=== PATIENT | female | born 1955 | race Asian ===

== ENCOUNTER 2016-07-09 20:45 | Emergency (ER) | payer MEDICARE ==
[2016-07-09 21:51] LABS: Basophils % (Auto) 0.9 % (0.0-1.8); Hemoglobin 13.3 gm/dl (10.1-14.3); Mean Corpuscular HGB Conc 34 % (30-34); Mean Corpuscular Hemoglobin 31 pg (28-32); Mean Corpuscular Volume 90 fl (79-97); Platelet Count 208 K/mm3 (140-440); Red Blood Count 4.34 M/mm3 (3.65-5.03); Red Cell Distribution Width 13.1 % (13.2-15.2); White Blood Count 6.2 K/mm3 (4.5-11.0)
[2016-07-09 22:17] LABS: Anion Gap 20 mmol/L; BUN/Creatinine Ratio 8.88; Blood Urea Nitrogen 8 mg/dL (7-17); Calcium 9.8 mg/dL (8.4-10.2); Carbon Dioxide 27 mmol/L (22-30); Chloride 94.5 mmol/L (98-107); Glucose 118 mg/dL (65-100); Potassium 3.1 mmol/L (3.6-5.0); Sodium 138 mmol/L (137-145)
[2016-07-10] MEDS ORDERED: XANAX PO ONE ×2 (04:57→16:04)
[2016-07-10] MEDS ORDERED: K-DUR PO ONE (05:00)
--- NOTE | 2016-07-10 05:01 | Emergency Department Report ---
ED Psych HPI - General Chief Complaint: Anxiety Stated Complaint: WEAKNESS/SHAKING/NAUSEA Time Seen by Provider: 07/10/16 04:56 Source: patient Mode of arrival: Ambulatory - History of Present Illness Initial Comments: 61-year-old female with history of anxiety, depression, constipation, hypothyroidism presenting today because of anxiety. Patient states that she has been on Xanax 2 mg during the day and 4 mg at night before bed for the last several decades has ran out of her medication. Patient states that she supposed to see her primary doctor but he is out of the office for an emergency. She states that she recently moved and is unable to find her medication bottle. She denies any suicidal ideation but states that she is very depressed she recently moved in with some females that she found on chronic salicylate is been feeling isolated. She has difficulty sleeping and severe anxiety. She denies any suicidal ideation or homicidal ideation. She also states that she found a small spot on her left foot on the lateral aspect which she wanted examined. Is not painful and does not itch. States that she noticed that in the last couple days. - Related Data Home Medications Medication Instructions Recorded Confirmed Last Taken Levothyroxine [Synthroid] 88 mcg PO QAM 07/10/16 07/10/16 07/05/16 Linaclotide [Linzess] 145 mcg PO QDAY 07/10/16 07/10/16 07/05/16 QUEtiapine [SEROquel] 900 mg PO QHS 07/10/16 07/10/16 07/05/16 Allergies Allergy/AdvReac Type Severity Reaction Status Date / Time No Known Allergies Allergy Unverified 12/16/15 21:35 ED Review of Systems ROS: Stated complaint: WEAKNESS/SHAKING/NAUSEA Other details as noted in HPI Comment: All other systems reviewed and negative Constitutional: denies: chills, fever Respiratory: denies: cough, shortness of breath Cardiovascular: denies: chest pain Gastrointestinal: denies: nausea, vomiting Genitourinary: denies: dysuria Skin: denies: rash Neurological: denies: headache Psychiatric: anxiety ED Past Medical Hx - Past Medical History Hx Hypertension: Yes Hx Psychiatric Treatment: Yes (anxiety, bipolar) Hx Asthma: Yes - Surgical History Past Surgical History?: Yes Additional Surgical History: right hand tendon repair. bilateral Ac repair. left ear pin. implants placed and removed, colon polyp removed - Social History Smoking Status: Never Smoker - Medications Home Medications: Home Medications Medication Instructions Recorded Confirmed Last Taken Type Levothyroxine [Synthroid] 88 mcg PO QAM 07/10/16 07/10/16 07/05/16 History Linaclotide [Linzess] 145 mcg PO QDAY 07/10/16 07/10/16 07/05/16 History QUEtiapine [SEROquel] 900 mg PO QHS 07/10/16 07/10/16 07/05/16 History ED Physical Exam - General Limitations: No Limitations General appearance: alert, anxious - Head Head exam: Present: atraumatic - ENT ENT exam: Present: normal exam - Respiratory Respiratory exam: Present: normal lung sounds bilaterally. Absent: respiratory distress, wheezes - Cardiovascular Cardiovascular Exam: Present: regular rate, normal rhythm - GI/Abdominal GI/Abdominal exam: Present: soft. Absent: distended, tenderness - Neurological Exam Neurological exam: Present: alert. Absent: motor sensory deficit - Psychiatric Psychiatric exam: Present: other (very anxious, tearful) - Skin Skin exam: Present: intact, other (.5 cm irregularly shaped dark macule on lateral aspect of left midfoot) ED Course Vital Signs 07/09/16 07/10/16 21:11 03:46 Temperature 98.6 F Pulse Rate 83 69 Respiratory 20 10 L Rate Blood Pressure 155/95 154/113 O2 Sat by Pulse 100 100 Oximetry ED Medical Decision Making - Lab Data Result diagrams: 07/09/16 21:30 07/09/16 21:30 - Medical Decision Making Labs and EKG ordered, labs show mild hypokalemia, by mouth potassium ordered, EKG shows normal sinus rhythm at a rate of 66, no ST changes Mental health counselor consultation at 5 AM patient is having significant symptoms likely partially related to benzodiazepine withdrawal but she has normal vital signs. I explained to the patient that the skin lesion on her left foot is concerning for possibly melanoma and that she will need to follow-up with a reference archivist for biopsy. Patient understood and will plan to follow up outpatient. Patient wants psychiatric admission voluntary as well as help with her drug abuse with xanax medically cleared for psych evaluation Critical care attestation.: If time is entered above; I have spent that time in minutes in the direct care of this critically ill patient, excluding procedure time. ED Disposition Clinical Impression: Anxiety Disposition: DC/TX ANOTHER TYPE HEALTHCARE Is pt being admited?: No Does the pt Need Aspirin: No Condition: Stable Referrals: [facility] [Primary Care Provider] - 3-5 Days [facility] [Provider Group] - 3-5 Days
[2016-07-10 07:59] VITALS: BP 146/94
[2016-07-10 08:53] LABS: Urine Drugs of Abuse Note Disclamer
[2016-07-10 09:18] LABS: Bilirubin,Urine NEG (Negative); Blood,Urine MOD (Negative); Ketones,Urine NEG (Negative); Leukocyte Esterase,Urine NEG (Negative); Nitrite,Urine NEG (Negative); Protein,Urine <15 mg/dL mg/dL (Negative); Urobilinogen,Urine < 2.0 mg/dL (<2.0)
--- NOTE | 2016-07-10 13:59 | Consultation ---
History of Present Illness - Reason for Consult Consult date: 07/10/16 Reason for consult: psychiatric evaluation/ possible benzodiazepine withdrawal - Chief Complaint Chief complaint: "I've had a rough time since turning 61" 61 year old white female seen in the ER for psychiatric evaluation. She had her roommate take her to the hospital for xanax withdrawal. She reports being out of xanax for 2 days. She reported she had sweats, shaking, and anxiety when she arrived. She was since given a dose of Xanax. She states she has been taking it for years at "severe doses" of 2mg daily with 4mg hs in addition to Seroquel 900mg hs and Ambien. She admits to taking 4-5 bars of xanax often (8-10 mg at one time). She was also prescribed Adderall 80mg total per day but states she stopped taking it. She also reports depression, helplessness, hopelessness, and passive thoughts of . No plan for suicide.She no longer has an affordable place to live. When her mother several years ago, her financial means were no longer. [place] not [place] access to transportation and has to pay $500/mo. No psychotic symptoms. Medications and Allergies Allergies Allergy/AdvReac Type Severity Reaction Status Date / Time No Known Allergies Allergy Unverified 12/16/15 21:35 Home Medications Medication Instructions Recorded Confirmed Last Taken Type ALPRAZolam [Xanax TAB] 2 mg PO QAM 07/10/16 07/10/16 Unknown History ALPRAZolam [Xanax TAB] 4 mg PO QHS 07/10/16 07/10/16 Unknown History Levothyroxine [Synthroid] 88 mcg PO QAM 07/10/16 07/10/16 07/05/16 History Linaclotide [Linzess] 145 mcg PO QDAY 07/10/16 07/10/16 07/05/16 History QUEtiapine [SEROquel] 900 mg PO QHS 07/10/16 07/10/16 07/05/16 History Past psychiatric history - Past Medical History Past Medical History: other ("back problems") - past Psychiatric treatment and history Psych: Bipolar psychiatric treatment history: She was discharged from [facility] for selling Adderall, within the last 6 months - Social History Social history: alcohol abuse (history of alcohol use with xanax regularly), prescription drug abuse Mental Status Exam - Vital signs Last Vital Signs Temp 98.6 F 07/09/16 21:11 Pulse 66 07/10/16 07:00 Resp 16 07/10/16 08:01 BP 146/94 07/10/16 07:00 Pulse Ox 100 07/10/16 08:01 - Exam Orientation: time, place, person Affect: depressed (dysphoric) Mood: congruent with affect Thought content: other (passive thoughts of , no HI) Thought Process: Intact Perceptions: none Speech: normal rate and pattern Concentration: distractible Motor activity: normal Level of consciousness: alert Memory: Intact Sleep Symptoms: Difficulty Falling Asleep Appetite: decreased Interaction: cooperative Results Result Diagrams: 07/09/16 21:30 07/09/16 21:30 Abnormal lab results 07/09/16 07/09/16 Range/Units 21:30 21:30 RDW 13.1 L (13.2-15.2) % Lymph % (Auto) 40.0 H (13.4-35.0) % Orange % (Auto) 8.9 H (0.0-7.3) % Potassium 3.1 L (3.6-5.0) mmol/L Chloride 94.5 L (98-107) mmol/L Glucose 118 H (65-100) mg/dL All other labs normal. Assessment and Plan Assessment and plan: Impression: benzodiazepine withdrawal Bipolar disorder, current episode depressed Recommendation: Voluntary admission to inpatient treatment for stabilization related to benzodiazepine withdrawal and bipolar disorder, current episode depressed.
[2016-07-10] MEDS ORDERED: TYLENOL PO PRN (18:13)
== END 2016-07-10 22:20 | disposition other institution (70) ==
LOC: ED 20:45
DX: F41.9 Anxiety disorder, unspecified (principal); I10 Essential (primary) hypertension; J45.909 Unspecified asthma, uncomplicated
CPT/HCPCS: 36415; 80048; 80307; 81001; 84439; 84443; 85025; 93005; 93010; 99285; G0480; 80320; 99283